=== PATIENT | female | born 1965 | race Caucasian/White ===

== ENCOUNTER 2020-10-26 06:29 | Day surgery (SDC) | payer BC, SELFPAY ==
[2020-10-22 14:31] VITALS: BMI 27.3
--- NOTE | 2020-10-25 09:25 | P.CONAN_ITS ---
Documented by User: Ofelia Powers 10/25/20 09:26 HPI - Anesthesia Eval Consult details Narrative: 55yo F for Colonoscopy [facility] Past Medical History Medical History Hypothyroidism Surgical History Surgical History Hx of section Hx of colonoscopy Social History Social History Advance Directives: No Advance Directives Information Provided: No Advance Directives on File: No Recently lost weight without trying: No Meds Allergies Allergy/AdvReac Type Severity Reaction Status Date / Time aspirin [ASA] Allergy Mild Nasal Verified 10/26/20 06:52 congestion Home Medications Medication Instructions Recorded Confirmed Last Taken Type cholecalciferol (vitamin D3) 25 mcg PO DAILY 10/22/20 10/22/20 Unknown History [Vitamin D3] levothyroxine 1 tab PO QAM 10/22/20 10/26/20 10/26/20 05:45 History multivitamin 1 tab PO DAILY 10/22/20 10/22/20 Unknown History Exam Exam Date and Time: October 25, 2020 0925 Height,Weight and Vital Signs: Height 5 ft 5 in Weight 74.389 kg Assessment and Plan Assessment Anesthesia Assessment: Chart Reviewed Documented by User: Vandana Coronel 10/26/20 07:23 [facility] Past Medical History Medical History Hypothyroidism Surgical History Surgical History Hx of section Hx of colonoscopy Social History Social History Advance Directives: No Advance Directives Information Provided: No Advance Directives on File: No Recently lost weight without trying: No Meds Allergies Allergy/AdvReac Type Severity Reaction Status Date / Time aspirin [ASA] Allergy Mild Nasal Verified 10/26/20 06:52 congestion Home Medications Medication Instructions Recorded Confirmed Last Taken Type cholecalciferol (vitamin D3) 25 mcg PO DAILY 10/22/20 10/22/20 Unknown History [Vitamin D3] levothyroxine 1 tab PO QAM 10/22/20 10/26/20 10/26/20 05:45 History multivitamin 1 tab PO DAILY 10/22/20 10/22/20 Unknown History Exam Airway Mallampati Class: I TM Dist: >3cm Neck ROM: Full Loose/Missing/Broken Teeth: No Heart: RRR Lungs: CTA Assessment and Plan Final Anesthetic Review NPO: Yes ASA Class: II Final Preanesthetic Review: Meds/Allgs Chart Reviewed, Consent Obtained/Reviewed and Anes Risks/Benef Reviewed Patient Risk: Low Procedure Risk: Low Anesthetic Plan Anesthetic Plan: MAC: Disposition: Standard PACU
[2020-10-26 06:54] VITALS: BP 124/83; PULSE 80; RESP 16; TEMP 36.6; O2SAT 100
[2020-10-26] MEDS: Lactated Ringers 1,000 ML 100 ML IVCONT (07:29)
--- NOTE | 2020-10-26 08:25 | PM.OP ---
Brief Operative Note Date of Service: 10/26/20 Pre-op diagnosis: Screening Post-op diagnosis: other (Rectal polyp) Procedure: Colonoscopy to cecum and TI with biopsy Surgeon: Rajinder Hernandez Anesthesia: MAC Estimated blood loss (mL): 3.0 Pathology: other (A. Rectal polyp) Condition: stable Disposition: PACU
[2020-10-26 08:26] VITALS: BP 104/75; PULSE 77; RESP 16; TEMP 36.2; O2SAT 96
[2020-10-26 08:40] VITALS: BP 105/62; PULSE 69; RESP 18; O2SAT 97
--- NOTE | 2020-10-26 09:56 | OP_ITS ---
SURGEON: Rajinder Hernandez MD INDICATIONS: The patient presents for evaluation of colorectal cancer screening and personal history of tubular adenoma of the colon. Full consent has been obtained from her for this, including risks of bleeding and perforation. PREOPERATIVE DIAGNOSIS: POSTOPERATIVE DIAGNOSIS: PROCEDURE PERFORMED: Colonoscopy to the cecum and terminal ileum with biopsy and removal of polyp. ESTIMATED BLOOD LOSS: COMPLICATIONS: ANESTHESIA: Monitored anesthesia care. ASSISTANTS: SPECIMENS: PREOPERATIVE DIAGNOSES: Colorectal cancer screening and personal history of tubular adenoma of the colon. POSTOPERATIVE DIAGNOSES: Colorectal cancer screening and personal history of tubular adenoma of the colon, small colon polyp, mild sigmoid diverticulosis, internal hemorrhoids. DESCRIPTION OF PROCEDURE: The patient was placed in the left lateral decubitus position. The digital rectal exam revealed no abnormalities. The Olympus video pediatric colonoscope was entered into the rectum and advanced easily to the cecum. Once in the cecum, I did identify normal-appearing cecal pouch with appendiceal orifice and a normal-appearing ileocecal valve. The terminal ileum was cannulated and appeared normal. The scope was withdrawn back in the colon. The entire cecum and ileocecal valve appeared normal. The scope was slowly withdrawn assessing all mucosal surfaces carefully. Preparation was excellent. In the proximal rectum, was a flat approximately 3 mm polyp, which was biopsied and completely removed with cold biopsy forceps. I did not visualize any other polyps, colitis, nor angiodysplasia. There was a mild amount of sigmoid diverticulosis. In the rectum, scope was retroflexed visualizing internal hemorrhoids, but no other pathology. The rectal mucosa appeared normal. The scope was straightened and withdrawn from the patient. She tolerated the procedure well and was returned to the recovery area in stable condition. IMPRESSION: 1. Small colon polyp, status post biopsy and removal. 2. Mild diverticulosis. 3. Internal hemorrhoids. PLAN: The results of biopsy will be checked. I would recommend a repeat colonoscopy in 5 years for further screening. She will otherwise see me on a p.r.n. basis. This has been discussed with her . MD ANA LUISA Cook/NEGRITO / [phone]
== END 2020-10-26 09:13 | disposition home or self-care (01) ==
PROVIDERS: PCP Internal Medicine; Visit Provider Internal Medicine
PROC: 0DJD8ZZ Inspection of Lower Intestinal Tract, Via Natural or Artificial Opening Endoscopic (ICD-10-PCS; CPT 45378; principal; 2020-10-26 07:30)
DX: Z12.11 Encounter for screening for malignant neoplasm of colon (principal); Z86.010 Personal history of colon polyps; K62.1 Rectal polyp; K57.30 Diverticulosis of large intestine without perforation or abscess without bleeding; K64.8 Other hemorrhoids; E03.9 Hypothyroidism, unspecified; Z79.899 Other long term (current) drug therapy; Z88.8 Allergy status to other drugs, medicaments and biological substances
CPT/HCPCS: 45380; 88305

== ENCOUNTER 2021-11-07 07:29 | Outpatient (REF) | payer BC, SELFPAY ==
[2021-11-07 11:06] LABS: MANUAL DIFF FLAG NO
[2021-11-07 11:13] LABS: Basophils Absolute Auto 0.1 X10*3/uL (0.0-0.2); Basophils Percent Auto 0.8 % (0-2); Eosinophils Absolute Auto 0.2 X10*3/uL (0.0-0.4); Eosinophils Percent Auto 3.6 % (0-4); Hematocrit 42.2 % (37.0-47.0); Hemoglobin 13.6 g/dl (12.0-16.0); Imm Gran Abs Auto 0.02 X10*3/uL (0.00-0.03); Imm Gran Pct Auto 0.3 % (0.0-0.4); Lymphocytes Absolute Auto 2.2 X10*3/uL (1.2-4.9); Lymphocytes Percent Auto 32.7 % (20-40); Mean Corpuscular HGB Conc 32.2 g/dl (31.0-35.0); Mean Corpuscular Hemoglobin 29.1 pg (27.0-33.0); Mean Corpuscular Volume 90.4 fL (80.0-98.0); Monocytes Absolute Auto 0.4 X10*3/uL (0.1-1.2); Monocytes Percent Auto 6.3 % (2-11); Neutrophils Absolute Auto 3.8 x10*3/uL (2.0-8.3); Neutrophils Percent Auto 56.3 % (45-73); Platelet Count 307 X10*3/uL (160-400); Red Blood Count 4.67 X10*6/uL (4.20-5.50); Red Cell Distribution Width 12.4 % (11.0-16.0); White Blood Count 6.7 X10*3/uL (4.8-10.8)
[2021-11-07 11:20] LABS: Appearance Urine CLEAR; Color Urine YELLOW; Glucose Urine UA NEG (NEG); Leukocyte Esterase Urine 1+ (NEG); Nitrite Urine NEG (NEG); PH 6.5 (5.0-8.0); Specific Gravity - Urine 1.015 (1.005-1.025); Urine Blood TRACE (NEG); Urine Ketones NEG (NEG); Urine Protein NEG (NEG-TRACE)
[2021-11-07 11:44] LABS: Mucus Urine 2+ /LPF; Squamous Epithelial Cell Urine 1+ /LPF
[2021-11-07 11:49] LABS: Alanine Aminotransferase 21 U/L (0-31); Albumin Level 4.3 g/dL (3.5-5.0); Alkaline Phosphatase 138 U/L (39-117); Anion Gap 14 (12-20); Aspartate Amino Transferase 21 U/L (5-31); Bilirubin Total 0.8 mg/dL (0.0-1.0); Blood Urea Nitrogen 17 mg/dL (9-16); Calcium 9.9 mg/dL (8.4-10.2); Carbon Dioxide 22 mmol/L (22-29); Chloride 107 mmol/L (96-108); Cholesterol 268 mg/dL; Estimated Glomerular Filt Rate > 60; Glucose Fasting 94 mg/dL (60-99); HDL Cholesterol 87 mg/dL; LDL Cholesterol Calculated 161 mg/dl; Potassium 4.2 mmol/L (3.3-5.1); Sodium 139 mmol/L (135-145); Total Protein 7.6 g/dL (6.5-8.0); Triglycerides 104 mg/dL
[2021-11-07 11:59] LABS: Thyroid Stimulating Hormone 0.78 uIU/mL (0.32-4.0)
[2021-11-07 14:58] LABS: Vitamin D 25-OH Total 42.5 ng/mL (>30)
== END 2021-11-07 07:30 | disposition home or self-care (01) ==
LOC: HO.HMGCLDS 07:29
PROVIDERS: Visit Provider Internal Medicine
DX: Z00.00 Encounter for general adult medical examination without abnormal findings (principal); E03.9 Hypothyroidism, unspecified; E78.00 Pure hypercholesterolemia, unspecified; E55.9 Vitamin D deficiency, unspecified; E66.3 Overweight
CPT/HCPCS: 36415; 80053; 80061; 81001; 82306; 84443; 85025

== ENCOUNTER 2021-12-18 13:22 | Outpatient (REF) | payer BC, SELFPAY ==
[2021-12-18 16:44] LABS: Alanine Aminotransferase 16 U/L (0-31); Albumin Level 4.2 g/dL (3.5-5.0); Alkaline Phosphatase 138 U/L (39-117); Aspartate Amino Transferase 19 U/L (5-31); Bilirubin Direct 0.2 mg/dL (0.0-0.5); Bilirubin Total 0.6 mg/dL (0.0-1.0); Total Protein 7.5 g/dL (6.5-8.0)
== END 2021-12-18 13:23 | disposition home or self-care (01) ==
LOC: HO.HMGCLDS 13:22
PROVIDERS: Visit Provider Podiatrist
DX: B35.1 Tinea unguium (principal)
CPT/HCPCS: 36415; 80076

== ENCOUNTER 2022-12-18 07:49 | Outpatient (REF) | payer BC, SELFPAY ==
[2022-12-18 11:12] LABS: MANUAL DIFF FLAG NO
[2022-12-18 11:35] LABS: Basophils Absolute Auto 0.1 X10*3/uL (0.0-0.2); Basophils Percent Auto 0.8 % (0-2); Eosinophils Absolute Auto 0.2 X10*3/uL (0.0-0.4); Hemoglobin 13.2 g/dl (12.0-16.0); Imm Gran Abs Auto 0.01 X10*3/uL (0.00-0.03); Imm Gran Pct Auto 0.2 % (0.0-0.4); Lymphocytes Absolute Auto 2.1 X10*3/uL (1.2-4.9); Lymphocytes Percent Auto 32.5 % (20-40); Mean Corpuscular HGB Conc 32.2 g/dl (31.0-35.0); Mean Corpuscular Hemoglobin 29.7 pg (27.0-33.0); Mean Corpuscular Volume 92.1 fL (80.0-98.0); Mean Platelet Volume 10.1 fL (9.4-12.3); Monocytes Absolute Auto 0.5 X10*3/uL (0.1-1.2); Monocytes Percent Auto 8.1 % (2-11); Neutrophils Absolute Auto 3.5 x10*3/uL (2.0-8.3); Neutrophils Percent Auto 55.4 % (45-73); Platelet Count 286 X10*3/uL (160-400); Red Blood Count 4.45 X10*6/uL (4.20-5.50); Red Cell Distribution Width 12.6 % (11.0-16.0); White Blood Count 6.3 X10*3/uL (4.8-10.8)
[2022-12-18 12:28] LABS: Alanine Aminotransferase 18 U/L (0-31); Albumin Level 4.3 g/dL (3.5-5.0); Alkaline Phosphatase 154 U/L (39-117); Anion Gap 12 (12-20); Aspartate Amino Transferase 20 U/L (5-31); Bilirubin Total 0.6 mg/dL (0.0-1.0); Blood Urea Nitrogen 18 mg/dL (9-16); Calcium 9.6 mg/dL (8.4-10.2); Carbon Dioxide 24 mmol/L (22-29); Chloride 110 mmol/L (96-108); Cholesterol 275 mg/dL; Estimated Glomerular Filt Rate > 60; Glucose Fasting 92 mg/dL (60-99); HDL Cholesterol 78 mg/dL; LDL Cholesterol Calculated 179 mg/dl; Potassium 4.2 mmol/L (3.3-5.1); Sodium 142 mmol/L (135-145); Total Protein 7.2 g/dL (6.5-8.0); Triglycerides 93 mg/dL
[2022-12-18 12:55] LABS: Thyroid Stimulating Hormone 0.79 uIU/mL (0.32-4.0); Vitamin D 25-OH Total 32.4 ng/mL (>30)
== END 2022-12-18 07:50 | disposition home or self-care (01) ==
LOC: HO.HMGCLDS 07:49
PROVIDERS: PCP Internal Medicine; Visit Provider Internal Medicine
DX: Z00.00 Encounter for general adult medical examination without abnormal findings (principal); E03.9 Hypothyroidism, unspecified; E55.9 Vitamin D deficiency, unspecified; E78.00 Pure hypercholesterolemia, unspecified
CPT/HCPCS: 36415; 80053; 80061; 82306; 84443; 85025

== ENCOUNTER 2023-02-12 08:03 | Outpatient (REF) | payer BC, SELFPAY ==
[2023-02-12 11:14] LABS: MANUAL DIFF FLAG NO
[2023-02-12 11:15] LABS: Basophils Absolute Auto 0.1 X10*3/uL (0.0-0.2); Basophils Percent Auto 0.9 % (0-2); Eosinophils Absolute Auto 0.2 X10*3/uL (0.0-0.4); Eosinophils Percent Auto 3.4 % (0-4); Hematocrit 40.7 % (37.0-47.0); Hemoglobin 13.3 g/dl (12.0-16.0); Imm Gran Abs Auto 0.01 X10*3/uL (0.00-0.03); Imm Gran Pct Auto 0.2 % (0.0-0.4); Lymphocytes Absolute Auto 1.6 X10*3/uL (1.2-4.9); Lymphocytes Percent Auto 26.7 % (20-40); Mean Corpuscular HGB Conc 32.7 g/dl (31.0-35.0); Mean Corpuscular Volume 91.7 fL (80.0-98.0); Mean Platelet Volume 9.9 fL (9.4-12.3); Monocytes Absolute Auto 0.4 X10*3/uL (0.1-1.2); Neutrophils Absolute Auto 3.6 x10*3/uL (2.0-8.3); Neutrophils Percent Auto 61.8 % (45-73); Platelet Count 276 X10*3/uL (160-400); Red Blood Count 4.44 X10*6/uL (4.20-5.50); Red Cell Distribution Width 12.6 % (11.0-16.0); White Blood Count 5.9 X10*3/uL (4.8-10.8)
[2023-02-12 11:40] LABS: Alanine Aminotransferase 17 U/L (0-31); Albumin Level 4.1 g/dL (3.5-5.0); Alkaline Phosphatase 127 U/L (39-117); Aspartate Amino Transferase 22 U/L (5-31); Bilirubin Direct 0.1 mg/dL (0.0-0.5); Bilirubin Total 0.5 mg/dL (0.0-1.0); Total Protein 6.9 g/dL (6.5-8.0)
== END 2023-02-12 08:04 | disposition home or self-care (01) ==
LOC: HO.HMGCLDS 08:03
PROVIDERS: PCP Internal Medicine; Visit Provider Internal Medicine
DX: B35.1 Tinea unguium (principal)
CPT/HCPCS: 36415; 80076; 85025

== ENCOUNTER 2023-12-24 07:46 | Outpatient (REF) | payer BC, SELFPAY ==
[2023-12-24 10:36] LABS: MANUAL DIFF FLAG NO
[2023-12-24 10:49] LABS: Basophils Absolute Auto 0.1 X10*3/uL (0.0-0.2); Eosinophils Absolute Auto 0.3 X10*3/uL (0.0-0.4); Hematocrit 42.9 % (37.0-47.0); Hemoglobin 13.9 g/dl (12.0-16.0); Imm Gran Abs Auto 0.01 X10*3/uL (0.00-0.03); Imm Gran Pct Auto 0.1 % (0.0-0.4); Lymphocytes Absolute Auto 2.1 X10*3/uL (1.2-4.9); Lymphocytes Percent Auto 31.6 % (20-40); Mean Corpuscular HGB Conc 32.4 g/dl (31.0-35.0); Mean Corpuscular Hemoglobin 29.4 pg (27.0-33.0); Mean Corpuscular Volume 90.7 fL (80.0-98.0); Mean Platelet Volume 9.8 fL (9.4-12.3); Monocytes Absolute Auto 0.5 X10*3/uL (0.1-1.2); Monocytes Percent Auto 7.5 % (2-11); Neutrophils Absolute Auto 3.7 x10*3/uL (2.0-8.3); Neutrophils Percent Auto 55.8 % (45-73); Platelet Count 300 X10*3/uL (160-400); Red Blood Count 4.73 X10*6/uL (4.20-5.50); Red Cell Distribution Width 12.5 % (11.0-16.0); White Blood Count 6.7 X10*3/uL (4.8-10.8)
[2023-12-24 11:20] LABS: Alanine Aminotransferase 15 U/L (0-31); Albumin Level 4.4 g/dL (3.5-5.0); Alkaline Phosphatase 131 U/L (39-117); Anion Gap 14 (12-20); Aspartate Amino Transferase 18 U/L (5-31); Bilirubin Total 0.6 mg/dL (0.0-1.0); Blood Urea Nitrogen 16 mg/dL (9-16); Calcium 9.6 mg/dL (8.4-10.2); Carbon Dioxide 23 mmol/L (22-29); Chloride 108 mmol/L (96-108); Cholesterol 260 mg/dL (<200); Estimated Glomerular Filt Rate > 60; Glucose Fasting 90 mg/dL (60-99); HDL Cholesterol 86 mg/dL (>40); LDL Cholesterol Calculated 150 mg/dL (<100); Sodium 141 mmol/L (135-145); Total Protein 7.8 g/dL (6.5-8.0); Triglycerides 120 mg/dL (<150)
[2023-12-24 11:22] LABS: Thyroid Stimulating Hormone 3.31 uIU/mL (0.32-4.0)
== END 2023-12-24 07:47 | disposition home or self-care (01) ==
LOC: HO.HMGCLDS 07:46
PROVIDERS: PCP Internal Medicine; Visit Provider Internal Medicine
DX: Z00.00 Encounter for general adult medical examination without abnormal findings (principal); E03.9 Hypothyroidism, unspecified; E78.00 Pure hypercholesterolemia, unspecified; E55.9 Vitamin D deficiency, unspecified
CPT/HCPCS: 36415; 80053; 80061; 82306; 84443; 85025

== ENCOUNTER 2024-03-17 07:22 | Outpatient (REF) | payer BC, SELFPAY ==
[2024-03-17 10:34] LABS: Alanine Aminotransferase 11 U/L (0-31); Albumin Level 4.2 g/dL (3.5-5.0); Alkaline Phosphatase 139 U/L (39-117); Aspartate Amino Transferase 17 U/L (5-31); Bilirubin Direct 0.1 mg/dL (0.0-0.5); Bilirubin Total 0.5 mg/dL (0.0-1.0); Cholesterol 242 mg/dL (<200); HDL Cholesterol 78 mg/dL (>40); LDL Cholesterol Calculated 139 mg/dL (<100); Total Protein 7.2 g/dL (6.5-8.0); Triglycerides 128 mg/dL (<150)
[2024-03-17 10:51] LABS: Free T4 (Free Thyroxine) 1.04 ng/dL (0.71-1.85); Thyroid Stimulating Hormone 2.76 uIU/mL (0.32-4.0)
[2024-03-19 21:54] LABS: Triiodothyronine T3 Free 2.7 pg/mL (2.3-4.2)
== END 2024-03-17 07:23 | disposition home or self-care (01) ==
LOC: HO.HMGCLDS 07:22
PROVIDERS: PCP Internal Medicine; Visit Provider Internal Medicine
DX: E03.9 Hypothyroidism, unspecified (principal); E78.00 Pure hypercholesterolemia, unspecified
CPT/HCPCS: 36415; 80061; 80076; 84439; 84443; 84481

== ENCOUNTER 2025-01-05 07:43 | Outpatient (REF) | payer BC, SELFPAY ==
[2025-01-05 10:16] LABS: MANUAL DIFF FLAG NO
[2025-01-05 10:29] LABS: Basophils Absolute Auto 0.1 X10*3/uL (0.0-0.2); Basophils Percent Auto 0.9 % (0-2); Eosinophils Absolute Auto 0.3 X10*3/uL (0.0-0.4); Eosinophils Percent Auto 3.9 % (0-4); Hematocrit 41.8 % (37.0-47.0); Hemoglobin 13.6 g/dl (12.0-16.0); Imm Gran Abs Auto 0.01 X10*3/uL (0.00-0.03); Imm Gran Pct Auto 0.2 % (0.0-0.4); Lymphocytes Absolute Auto 2.3 X10*3/uL (1.2-4.9); Lymphocytes Percent Auto 33.9 % (20-40); Mean Corpuscular HGB Conc 32.5 g/dl (31.0-35.0); Mean Corpuscular Hemoglobin 30.1 pg (27.0-33.0); Mean Corpuscular Volume 92.5 fL (80.0-98.0); Mean Platelet Volume 10.2 fL (9.4-12.3); Monocytes Absolute Auto 0.5 X10*3/uL (0.1-1.2); Monocytes Percent Auto 7.7 % (2-11); Neutrophils Absolute Auto 3.6 x10*3/uL (2.0-8.3); Neutrophils Percent Auto 53.4 % (45-73); Platelet Count 278 X10*3/uL (160-400); Red Blood Count 4.52 X10*6/uL (4.20-5.50); Red Cell Distribution Width 12.5 % (11.0-16.0); White Blood Count 6.7 X10*3/uL (4.8-10.8)
[2025-01-05 11:12] LABS: Estimated Average Glucose 108 mg/dL; Hemoglobin A1C 128.3456 umol/L; Hemoglobin A1c % 5.4 % (<6.0); Total Hemoglobin (HGBA1C) 3607.8584 umol/L
[2025-01-05 11:29] LABS: Alanine Aminotransferase 17 U/L (0-31); Albumin Level 4.4 g/dL (3.5-5.0); Alkaline Phosphatase 136 U/L (39-117); Anion Gap 11 (12-20); Aspartate Amino Transferase 22 U/L (5-31); Bilirubin Direct 0.2 mg/dL (0.0-0.5); Bilirubin Total 0.6 mg/dL (0.0-1.0); Blood Urea Nitrogen 13 mg/dL (9-16); C Reactive Protein < 0.10 mg/dL (< or = 0.50); Calcium 9.5 mg/dL (8.4-10.2); Carbon Dioxide 24 mmol/L (22-29); Chloride 110 mmol/L (96-108); Cholesterol 254 mg/dL (<200); Estimated Glomerular Filt Rate > 60; Glucose Fasting 91 mg/dL (60-99); HDL Cholesterol 81 mg/dL (>40); LDL Cholesterol Calculated 152 mg/dL (<100); Magnesium 2.1 mg/dL (1.6-2.6); Potassium 3.9 mmol/L (3.3-5.1); Sodium 141 mmol/L (135-145); Total Protein 7.4 g/dL (6.5-8.0); Triglycerides 109 mg/dL (<150)
[2025-01-05 11:42] LABS: Folate 11.7 ng/mL (> or = 4.0); Vitamin B12 502 pg/mL (200-900)
[2025-01-05 11:48] LABS: TSH reflex Free T4 0.69 uIU/mL (0.32-4.0); Vitamin D 25-OH Total 35.9 ng/mL (>30)
== END 2025-01-05 07:44 | disposition home or self-care (01) ==
LOC: HO.HMGCLDS 07:43
PROVIDERS: PCP Internal Medicine; Visit Provider Physician Assistant Medical
DX: Z00.00 Encounter for general adult medical examination without abnormal findings (principal); Z13.1 Encounter for screening for diabetes mellitus; Z13.6 Encounter for screening for cardiovascular disorders
CPT/HCPCS: 36415; 80053; 80061; 80076; 82248; 82306; 82607; 82746; 83036; 83735; 84443; 85025; 86140

== ENCOUNTER 2025-01-24 10:10 | Outpatient (AMB) | payer BC, SELFPAY ==
--- NOTE | 2025-01-24 10:17 | A.OFFPC_ITS ---
Vital Signs 01/24/25 10:24 Height 5 ft 4.96 in Weight 167 lb BMI 27.8 BP 127/70 Respiration 14 Pulse 64 Pulse Source Pulse Oximeter Temp 97.2 F Temp Source Temporal Artery Scan Pulse Oximetry (%) 99 Oxygen Delivery Method Room Air Intake Visit Reasons: physical [employer]namental [employer] Worker Required: No Accompanied by: Self / Same As Patient Allergies aspirin [ASA] Allergy (Mild, Verified 01/24/25 10:35) Nasal congestion Medication List - Last Reconciled 01/24/25 by Celeste Ruiz PA-C biotin (Hair, Skin and Nails (biotin)) mcg PO cholecalciferol (vitamin D3) (Vitamin D3) 25 mcg PO DAILY levothyroxine 112 mcg PO QAM multivitamin 1 tab PO DAILY rosuvastatin (Crestor) 10 mg PO BEDTIME Tobacco use date assessed: 01/24/25 Dental Screening Dental Screen Date: 01/24/25 Did you have a dental visit in the last 12 months?: Yes Did you have a dental problem in the last 6 months where you did not have access to dental care?: No Was dental information given to patient?: Patient has dentist HPI physical HPI Details 59-year-old [facility] primary care provider and for annual physical examination. Her prior primary care provider Dr. Aguillon retired in August. She denies any acute complaints although reports in the past Dr. Aguillon was referring her to Dermatology due to family history of her father with skin cancer. She reports she has freckles although no abnormal skin lesions that she has noted so far although she wants to ?be sure?. Patient reports she is on the 5 year plan for colonoscopy last colonoscopy was 10/26/2020 she is due for colonoscopy next year. Patient reports she had a mammogram on 06/03/2024. Mammogram records scanned into the chart. She had fasting labs performed on 01/05/2025 for this visit which revealed a normal CBC, normal BNP. Mildly elevated alkaline phosphate although has been elevated since 2019. Patient denies any abdominal pain or any other abdominal or GI related complaints. Patient had elevated cholesterol at 254 and elevated LDL of 152. All her other labs including triglycerides, HDL, vitamin B12, vitamin-D, folate and thyroid function were all within normal limits. Patient has a past medical history of freckles, vitamin-D deficiency, hypothyroidism, elevated alkaline phosphate level, hyperlipidemia and hypercholesterolemia where she is currently on medications. She denies any acute complaints. Social History - patient lives with and recentl y son who is a pharmacist in [facility] Medical History (Updated 01/24/25 @ 11:53 by Celeste Ruiz PA-C) Annual physical exam Freckles Skin lesions Vitamin D deficiency Establishing care with new doctor, encounter for Elevated alkaline phosphatase level Hyperlipidemia LDL goal <100 Pure hypercholesterolemia, unspecified Hypothyroidism Surgical History Hx of colonoscopy Hx of section Family History Father BP (high blood pressure) Diabetes Heart problem Skin cancer Mother BP (high blood pressure) Diabetes Social History Housing: House Alcohol intake: current Alcohol intake frequency: a few times a week Patient Tobacco Use Status: Never used Tobacco service: No Current occupational status: employed Cognitive needs: No Hearing needs: No Vision needs: Yes (reading glasses) Questionnaire PHQ-9 Over the last 2 weeks, how often have you been bothered by any of the following problems? 1. Little interest or pleasure in doing things: not at all 2. Feeling down, depressed, or hopeless: not at all 3. Trouble falling or staying asleep, or sleeping too much: not at all 4. Feeling tired or having little energy: not at all 5. Poor appetite or overeating: not at all 6. Feeling bad about yourself - or that you are a failure or have let yourself or your family down: not at all 7. Trouble concentrating on things, such as reading the newspaper or watching television: not at all 8. Moving or speaking so slowly that other people could have noticed. Or the opposite - being so fidgety or restless that you have been moving around a lot more than usual: not at all 9. Thoughts that you would be better off or of hurting yourself in some way: not at all Total score: 0 Depression Screening Interpretation: Negative Depression Screening Done: Yes 61818 - PHQ-9 Billing: Yes Source: Developed by Drs. Rajinder L. Nani, Christ Alvarado and colleagues, with an educational nereida from [employer]. Thrive Questionnaire Date Thrive assessed: 01/24/25 I am a: Patient What is your living situation today?: I have a steady place to live Within the past 12 months, did the food you bought not last and you didn't have the money to get more?: Never true Within the past 12 months, did you worry whether your food would run out before you got money to buy more?: Never true Do you have trouble paying for medicines?: No Do you have trouble getting transportation to medical appointments?: No Do you have trouble paying your heating and electricity bill?: No Do you have trouble taking care of your child, family member or friend?: No Do you have trouble with day-to-day activities such as bathing, preparing meals, shopping, managing finances, etc.?: No Are you currently unemployed and looking for a job?: No Are you interested in more education?: No Please select the resources that you would like help with: None THRIVE Score: 0 AUDIT C Alcohol Use Questionnaire (AUDIT-C) 1. How often do you have a drink containing alcohol?: 2-3 times a week 2. How many drinks containing alcohol do you have on a typical day when you are drinking?: 1 or 2 3. How often do you have six or more drinks on one occasion?: Never Total Score: 3 Score Reviewed/Action Taken: No KARON-7 AMB Questionnaire KARON-7 Date KARON - 7 assessed: 01/24/25 Feeling nervous, anxious, or on edge: 0 = Not at all Not being able to stop or control worryin = Not at all Worrying too much about different things: 0 = Not at all Trouble relaxin = Not at all Being so restless that it is hard to sit still: 0 = Not at all Becoming easily annoyed or irritable: 0 = Not at all Feeling afraid as if something awful might happen: 0 = Not at all Total KARON-7 score (0-4 normal; 5-9 mild; 10-14 moderate; 15-21 severe): 0 Source: Developed by Nereyda Shrestha Kurt Kroenke and colleagues, with an educational nereida from [employer]. KARON-7 Assessment Billing KARON-7 Assessment Tool: KARON-7 Assessment 18788 Review of Systems Const All systems reviewed & are unremarkable except as noted in HPI and below Physical exam (Primary Care) Vital Signs: Last Vital Signs Temp 97.2 F 01/24/25 10:24 Pulse 64 01/24/25 10:24 Resp 14 01/24/25 10:24 BP 127/70 01/24/25 10:24 Pulse Ox 99 01/24/25 10:24 Oxygen Delivery Method Room Air 01/24/25 10:24 Care Plan Goal for BP management: <140/90 at Goal BMI result Body Mass Index 27.8 BMI Assessment/Plan discussion: High BMI High, discussed plan: lifestyle, weight reduction, dietary, physical activity and alcohol moderation Tobacco/Smoking Status: Tobacco use Status Tobacco use date assessed 01/24/25 01/24/25 10:24 Patient Tobacco Use Status Never used Tobacco 01/24/25 10:29 PHQ-9: PHQ-9 Score PHQ-9: Total score 0 01/24/25 10:30 Depression Screening Interpretation: Negative Thrive Assessment: Date of Thrive Assessment Date Thrive assessed 01/24/25 01/24/25 10:24 Const Other: Appearance: Alert. Oriented X3. No acute distress. Head: Normal external exam. Normocephalic. Atraumatic. Eyes: Pupils are equal, round, and reactive to light. Extraocular movements intact. Conjunctiva and sclera normal. Eyelids normal. Ears: External auditory canal normal. Tympanic membranes normal. Throat: Pharynx normal. Uvula midline. Moist mucous membranes. Neck: Normal inspection. Neck supple. Full range of motion. No adenopathy. Thyroid Normal. No meningeal signs. No neck mass noted. Cardiovascular: Normal heart rate and rhythm. Heart sound normal. No murmurs noted. Pulses normal throughout. Respiratory: No respiratory distress. Painless inspiration. Breath sounds normal. No wheezes/rales/rhonchi noted. Chest nontender. No accessory muscle usage noted or decreased air movement noted. Abdomen: Soft and nontender. Bowel sounds normal in all 4 quadrants. No distention noted. No organomegaly noted. No visible injury noted. Back: No costovertebral angle tenderness. Full range of motion noted. Skin: Skin warm and dry. Normal skin color. Normal skin turgor. No rashes/lesions/lacerations noted. Extremities: No lower extremity edema. Extremities exhibit normal range of motion. Extremities nontender. Neuro: Oriented X 3. No motor deficit. No sensory deficit. Reflexes normal. Results Reviewed Results Reviewed: On 01/05/2025 patient had normal CBC, had an elevated alkaline phosphate although has been elevated since 2019 elevated cholesterol 250 for an elevated LDL of 152 otherwise all other labs are within normal limits. Patient had a normal mammogram on 06/03/2024. Patient had a colonoscopy on 10/26/2020 in his on the 5 year plan. Coding Level of Care Code New Pt Level 4 (71424) New Pt Prev Care 40-64y(11262) Diagnoses Establishing care with new doctor, encounter for Z76.89 Hypothyroidism E03.9 Vitamin D deficiency E55.9 Annual physical exam Z00.00 Freckles L81.2 Elevated alkaline phosphatase level R74.8 Hyperlipidemia LDL goal <100 E78.5 Pure hypercholesterolemia, unspecified E78.00 Additional Codes PHQ-9 - 34148 - PHQ-9 Billing: Yes ([id number]) KARON-7 Assessment Billing - KARON-7 Assessment Tool: KARON-7 Assessment 45131 ([id number]) Assessment & Plan Assessment & Plan (1) Establishing care with new doctor, encounter for: Code(s): Z76.89 - Persons encountering health services in other specified circumstances Category: Medical (2) Hypothyroidism: Code(s): E03.9 - Hypothyroidism, unspecified Category: Medical Plan: Patient to continue levothyroxine 112 mcg daily. Condition is chronic and stable continue to monitor. (3) Vitamin D deficiency: Code(s): E55.9 - Vitamin D deficiency, unspecified Category: Medical Plan: Patient to continue vitamin-D supplement. Condition is chronic and stable continue to monitor. (4) Annual physical exam: Code(s): Z00.00 - Encounter for general adult medical examination without abnormal findings Category: Medical (5) Freckles: Code(s): L81.2 - Freckles Category: Medical Plan: Patient to be referred to merchandise support associate. Condition is chronic and stable continue to monitor. (6) Elevated alkaline phosphatase level: Code(s): R74.8 - Abnormal levels of other serum enzymes Category: Medical Plan: Will continue to monitor and reassess patient denies any GI related complaints. Condition is chronic and stable continue to monitor. (7) Hyperlipidemia LDL goal <100: Code(s): E78.5 - Hyperlipidemia, unspecified Category: Medical Plan: Patient to continue Crestor 10 mg at bedtime. Condition is chronic and stable continue to monitor. (8) Pure hypercholesterolemia, unspecified: Code(s): E78.00 - Pure hypercholesterolemia, unspecified Category: Medical Plan: Patient to continue Crestor 10 mg at bedtime. Condition is chronic and stable continue to monitor. Plan Patient to continue vitamin-D supplement for vitamin D deficiency Patient to continue levothyroxine 112 mcg for hypothyroidism Patient to continue Crestor for hyperlipidemia and hypercholesterolemia. Patient to return in 1 year for annual exam Orders: Referrals Dermatology Referral L98.9 - Disorder of the skin and subcutaneous tissue, unspecified Patient Instructions: Patient to continue vitamin-D supplement for vitamin D deficiency Patient to continue levothyroxine 112 mcg for hypothyroidism Patient to continue Crestor for hyperlipidemia and hypercholesterolemia. Patient to return in 1 year for annual exam
[2025-01-24 10:24] VITALS: BP 127/70; PULSE 64; RESP 14; TEMP 36.2; O2SAT 99; BMI 27.8
== END 2025-01-24 10:47 | disposition home or self-care (01) ==
LOC: HO.HMCSH 10:10
PROVIDERS: PCP Internal Medicine; Visit Provider Physician Assistant Medical
DX: Z00.00 Encounter for general adult medical examination without abnormal findings (principal); E03.9 Hypothyroidism, unspecified; E55.9 Vitamin D deficiency, unspecified; L81.2 Freckles; E78.00 Pure hypercholesterolemia, unspecified; R74.8 Abnormal levels of other serum enzymes; E78.5 Hyperlipidemia, unspecified; Z76.89 Persons encountering health services in other specified circumstances

== ENCOUNTER → 2025-01-24 10:10 | Outpatient (BNVA) | payer BC, SELFPAY | PROVIDERS: PCP Internal Medicine; Visit Provider Physician Assistant Medical | DX: Z00.00 Encounter for general adult medical examination without abnormal findings (principal); Z76.89 Persons encountering health services in other specified circumstances; E03.9 Hypothyroidism, unspecified; E55.9 Vitamin D deficiency, unspecified; L81.2 Freckles; R74.8 Abnormal levels of other serum enzymes; E78.00 Pure hypercholesterolemia, unspecified; Z79.899 Other long term (current) drug therapy; Z13.31 Encounter for screening for depression; Z13.30 Encounter for screening examination for mental health and behavioral disorders, unspecified | CPT/HCPCS: 96127 ==

== ENCOUNTER 2025-02-21 10:41 | Outpatient (AMB) | payer BC, SELFPAY ==
--- NOTE | 2025-02-21 10:35 | A.OFFPC_ITS ---
Vital Signs 02/21/25 10:48 Height 5 ft 7.5 in Weight 168 lb BMI 25.9 BP 148/62 H Blood Pressure Location Rt brachial Pulse 65 Pulse Source Pulse Oximeter Temp 98.6 F Pulse Oximetry (%) 98 Intake Visit Reasons: Sinus infection Allergies aspirin (ASA) Allergy (Mild, Verified 02/21/25 10:58) Nasal congestion Medication List - Last Reconciled 02/21/25 by Celeste Ruiz PA-C biotin (Hair, Skin and Nails (biotin)) mcg PO cholecalciferol (vitamin D3) (Vitamin D3) 25 mcg PO DAILY levothyroxine 112 mcg PO QAM multivitamin 1 tab PO DAILY rosuvastatin (Crestor) 10 mg PO BEDTIME Tobacco use date assessed: 01/24/25 Dental Screening Dental Screen Date: 01/24/25 HPI Sinus infection HPI Details The patient is a 60-year-old female presenting with symptoms consistent with a sinus infection. She reports that the symptoms began after babysitting h er grandson, who had a cold, approximately one to two weeks ago. Initially, she experienced sneezing and cold symptoms, which progressed to sinus congestion. The patient describes the nasal discharge as yellowish-green, and she has been experiencing facial pain and dental discomfort. She denies fever, leg stiffness, and sore throat, but reports persistent nasal congestion and cough without significant sputum production. Jjxk-sto-ocjxadf medications for severe headache and sinus congestion have been ineffective in alleviating her symptoms. She has a history of occasional sinus infections, typically managed with qany-twj-mrxpezh treatments, but this episode has been more persistent. [facility] Medical History (Updated 02/21/25 @ 11:10 by Celeste Ruiz PA-C) Sinusitis History of mammogram (~06/06/24) Annual physical exam Freckles Skin lesions Vitamin D deficiency Establishing care with new doctor, encounter for Elevated alkaline phosphatase level Hyperlipidemia LDL goal <100 Pure hypercholesterolemia, unspecified Hypothyroidism Surgical History Hx of colonoscopy Hx of section Family History Father BP (high blood pressure) Diabetes Heart problem Skin cancer Mother BP (high blood pressure) Diabetes Social History Housing: House Alcohol intake: current Alcohol intake frequency: a few times a week Patient Tobacco Use Status: Never used Tobacco service: No Current occupational status: employed Cognitive needs: No Hearing needs: No Vision needs: Yes (reading glasses) Questionnaire PHQ-9 Over the last 2 weeks, how often have you been bothered by any of the following problems? 1. Little interest or pleasure in doing things: not at all 2. Feeling down, depressed, or hopeless: not at all 3. Trouble falling or staying asleep, or sleeping too much: not at all 4. Feeling tired or having little energy: not at all 5. Poor appetite or overeating: not at all 6. Feeling bad about yourself - or that you are a failure or have let yourself or your family down: not at all 7. Trouble concentrating on things, such as reading the newspaper or watching television: not at all 8. Moving or speaking so slowly that other people could have noticed. Or the opposite - being so fidgety or restless that you have been moving around a lot more than usual: not at all 9. Thoughts that you would be better off or of hurting yourself in some way: not at all Total score: 0 Depression Screening Interpretation: Negative Depression Screening Done: Yes 93413 - PHQ-9 Billing: Yes Source: Developed by Drs. Rajinder Cardoza, Nereyda Mello, Christ Pike and colleagues, with an educational nereida from [employer] Thrive Questionnaire Date Thrive assessed: 01/24/25 I am a: Patient What is your living situation today?: I have a steady place to live Within the past 12 months, did the food you bought not last and you didn't have the money to get more?: Never true Within the past 12 months, did you worry whether your food would run out before you got money to buy more?: Never true Do you have trouble paying for medicines?: No Do you have trouble getting transportation to medical appointments?: No Do you have trouble paying your heating and electricity bill?: No Do you have trouble taking care of your child, family member or friend?: No Do you have trouble with day-to-day activities such as bathing, preparing meals, shopping, managing finances, etc.?: No Are you currently unemployed and looking for a job?: No Are you interested in more education?: No Please select the resources that you would like help with: None THRIVE Score: 0 AUDIT C Alcohol Use Questionnaire (AUDIT-C) 1. How often do you have a drink containing alcohol?: 2-3 times a week 2. How many drinks containing alcohol do you have on a typical day when you are drinking?: 1 or 2 3. How often do you have six or more drinks on one occasion?: Never Total Score: 3 Score Reviewed/Action Taken: No KARON-7 AMB Questionnaire KARON-7 Date KARON - 7 assessed: 01/24/25 Feeling nervous, anxious, or on edge: 0 = Not at all Not being able to stop or control worryin = Not at all Worrying too much about different things: 0 = Not at all Trouble relaxin = Not at all Being so restless that it is hard to sit still: 0 = Not at all Becoming easily annoyed or irritable: 0 = Not at all Feeling afraid as if something awful might happen: 0 = Not at all Total KARON-7 score (0-4 normal; 5-9 mild; 10-14 moderate; 15-21 severe): 0 Source: Developed by Drs. Rajinder Cardoza, Nereyda Mello, Christ Pike and colleagues, with an educational nereida from [employer]. KARON-7 Assessment Billing KARON-7 Assessment Tool: KARON-7 Assessment 30182 Review of Systems Const Details: - General: Denies fever - HEENT: Reports nasal congestion with yellowish-green discharge, facial pain, and dental discomfort. Denies sore throat. - Respiratory: Reports cough without significant sputum production. Denies leg stiffness. Physical exam (Primary Care) Vital Signs: Last Vital Signs Temp 98.6 F 02/21/25 10:48 Pulse 65 02/21/25 10:48 BP 148/62 H 02/21/25 10:48 Pulse Ox 98 02/21/25 10:48 BMI result Body Mass Index 25.9 Tobacco/Smoking Status: Tobacco use Status Tobacco use date assessed 01/24/25 02/21/25 10:39 Patient Tobacco Use Status Never used Tobacco 02/21/25 10:39 PHQ-9: PHQ-9 Score PHQ-9: Total score 0 02/21/25 10:39 Depression Screening Interpretation: Negative Thrive Assessment: Date of Thrive Assessment Date Thrive assessed 01/24/25 02/21/25 10:39 Const Other: Appearance: Alert. Oriented X3. No acute distress. Head: Normal external exam. Normocephalic. Atraumatic. Eyes: Pupils are equal, round, and reactive to light. Extraocular movements intact. Conjunctiva and sclera normal. Eyelids normal. Ears: External auditory canal normal. Tympanic membranes normal. Throat: Pharynx normal. Uvula midline. Moist mucous membranes. No throat pain reported. Neck: Normal inspection. Neck supple. Full range of motion. No adenopathy. No meningeal signs. No neck mass noted. Cardiovascular: Normal heart rate and rhythm. Heart sound normal. No murmurs noted. Pulses normal throughout. Respiratory: No respiratory distress. Painless inspiration. Breath sounds normal. No wheezes/rales/rhonchi noted. Chest nontender. No accessory muscle usage noted or decreased air movement noted. Back: Full range of motion noted. Skin: Skin warm and dry. Normal skin color. Extremities: Extremities exhibit normal range of motion. Coding Level of Care Code Est Pt Level 4 (28958) Diagnoses Sinusitis J32.9 Additional Codes KARON-7 Assessment Billing - KARON-7 Assessment Tool: KARON-7 Assessment 59605 ([id number]) PHQ-9 - 13336 - PHQ-9 Billing: Yes ([id number]) Assessment & Plan Assessment & Plan (1) Sinusitis: Code(s): J32.9 - Chronic sinusitis, unspecified Category: Medical Plan: The patient will be treated with Augmentin, an antibiotic, to be taken twice daily for 7 to 10 days. A probiotic is recommended to prevent gastrointestinal side effects from the antibiotic. The patient is advised to continue using gtme-zbn-enlblkg decongestants such as Flonase or Mucinex to manage symptoms. Follow-up is advised if symptoms worsen or do not improve. Plan Plan Patient was informed and verbally consented to the use of an ambient scribe for clinic note documentation during this visit. 1. Acute Sinusitis The patient will be treated with Augmentin, an antibiotic, to be taken twice daily for 7 to 10 days. A probiotic is recommended to prevent gastrointestinal side effects from the antibiotic. The patient is advised to continue using wvba-jij-fyqxjvi decongestants such as Flonase or Mucinex to manage symptoms. Follow-up is advised if symptoms worsen or do not improve. I discussed with the patient the diagnosis of acute sinusitis and the treatment plan, including the use of Augmentin and probiotics. I explained the importance of taking the antibiotic as prescribed and the role of probiotics in preventing side effects. We also discussed the use of eolt-oai-pumugde decongestants and the need for follow-up if symptoms do not improve. Medications: New amoxicillin-pot clavulanate 875-125 mg 1 tab PO BID 14 tabs 0RF 7 days amoxicillin-pot clavulanate 875-125 mg 1 tab PO BID 7 days 14 tabs 0RF fluticasone propionate 50 mcg/actuation (Flonase Allergy Relief) administer into each nostril 1 spray intranasal BID 16 grams 0RF fluticasone propionate 50 mcg/actuation (Flonase Allergy Relief) administer into each nostril 1 spray intranasal BID 16 grams 0RF Patient Instructions: - Take Augmentin twice daily for 7 to 10 days. - Take a probiotic daily to prevent stomach upset. - Continue using jfqq-dgu-gujmjkr decongestants like Flonase or Mucinex. - Contact the clinic if symptoms worsen or do not improve.
[2025-02-21 10:48] VITALS: BP 148/62; PULSE 65; TEMP 37; O2SAT 98; BMI 25.9
== END 2025-02-21 11:05 | disposition home or self-care (01) ==
LOC: HO.HMCSH 10:41
PROVIDERS: PCP Internal Medicine; Visit Provider Physician Assistant Medical
DX: J32.9 Chronic sinusitis, unspecified (principal)

== ENCOUNTER → 2025-02-21 10:41 | Outpatient (BNVA) | payer BC, SELFPAY | PROVIDERS: PCP Internal Medicine; Visit Provider Physician Assistant Medical | DX: J32.9 Chronic sinusitis, unspecified (principal) | CPT/HCPCS: 96127 ==